=== PATIENT | male | born 1985 | race Caucasian/White ===

== ENCOUNTER 2017-01-28 01:36 | Emergency (ER) | payer SELFPAY ==
[~2017-01-28] VITALS: Ht 182.9 cm; Wt 105.0 kg
[2017-01-28 01:47] VITALS: BP 156/90; PULSE 117; RESP 16; TEMP 98.6; O2SAT 97
[2017-01-28 01:55] VITALS: BP 156/90; PULSE 100; RESP 16; O2SAT 97
[2017-01-28] MEDS ORDERED: TETANUS/DIPHTHERIA TOXOID ADULT 0.5 ML VIAL IM ONE (02:30)
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
[2017-01-28] MEDS ORDERED: LIDOCAINE HCL 1% PF 30 ML VIAL ONE (03:10)
== END 2017-01-28 03:52 | disposition home or self-care (01) ==
LOC: NEPE 01:36
DX: S02.2XXA Fracture of nasal bones, initial encounter for closed fracture (principal); S01.112A Laceration without foreign body of left eyelid and periocular area, initial encounter; Y09 Assault by unspecified means; Z23 Encounter for immunization
CPT/HCPCS: 12011; 70450; 70486; 72125; 90471; 90714